=== PATIENT | female | born 1965 | race Caucasian/White ===

== ENCOUNTER → 2016-08-19 | Outpatient (CLI) | payer BC ==
[~2016-08-19] MED LIST: ASPI81TA57 PO; CALCTAB65 PO; MULT-506 PO
[2016-08-19 13:10] LABS: BASO % 0.5 %; BASO ABS # 0.03 K/uL (0-0.2); COMPLETE YES; EOS % 1.4 %; HEMATOCRIT 41.4 % (37-47); LYMPH % 30.8 %; LYMPH ABS # 1.73 K/uL (1.2-3.4); MEAN CELL VOLUME 90.2 fL (80-100); MEAN CORPUSCULAR HEMOGLOBIN 30.5 pg (25-34); MEAN CORPUSCULAR HGB CONC 33.8 g/dl (32-36); MEAN PLATELET VOLUME 11.2 fL (7.4-10.4); MONO % 8.2 %; NEUT % 59.1 %; PLATELET COUNT 241 K/uL (130-400); RED BLOOD COUNT 4.59 M/uL (4.2-5.4); WHITE BLOOD COUNT 5.62 K/uL (4.8-10.8)
[2016-08-19 13:35] LABS: ALT/SGPT 20 U/L (12-78); BLOOD UREA NITROGEN 12 mg/dl (7-18); BUN/CREATININE RATIO 13.5 (10-20); CALCIUM 8.8 mg/dl (8.5-10.1); CARBON DIOXIDE 24 mmol/L (21-32); CHLORIDE 108 mmol/L (98-107); CHOLESTEROL 179 mg/dl (0-200); CREATININE 0.86 mg/dl (0.60-1.20); GLUCOSE 76 mg/dl (70-99); POTASSIUM 4.1 mmol/L (3.5-5.1); SODIUM 139 mmol/L (136-145)
[2016-08-19 13:45] LABS: ALB/GLOB RATIO 1.1 (0.9-2); ALKALINE PHOSPHATASE 49 U/L (45-117); AST/SGOT 13 U/L (15-37); HDL CHOLESTEROL 45 mg/dl; LDL CHOLESTEROL CALCULATED 115 mg/dl; TRIGLYCERIDES 95 mg/dl (0-150); VERY LOW DENSITY LIPOPROT CALC 19 mg/dl
--- NOTE | 2016-08-25 10:17 | CODING QUERY MEDICAL NECESSITY ---
CQSUPPORTING DIAGNOSIS NEEDED A supporting diagnosis is required for the test/procedure performed on this patient in order for us to be reimbursed by the patient's insurance. Please provide a supporting diagnosis for the following test/procedure listed below next to the test name along with your signature. *If there is no additional diagnosis for this patient that would support the following test/procedure please document that below next to the test/procedure. Test(s)/Procedure(s) that require a supporting diagnosis: DOS 08/19/16 VITAMIN D TEST BLOOD COUNT TEST Provider Signature: Date: Thank you Elizabeth Mendoza [facility] Information Management Once completed, please kindly fax back to [phone] For questions please call [phone]
== END | disposition home or self-care (01) ==
LOC: C.LABPVFM 08:07
PROVIDERS: ATTEND Nurse Practitioner
DX: Z00.00 Encounter for general adult medical examination without abnormal findings (principal)

== ENCOUNTER → 2016-10-06 | Outpatient (CLI) | payer BC ==
--- NOTE | 2016-10-09 08:00 | MAMMOGRAPHY REPORT ---
BILATERAL DIGITAL SCREENING MAMMOGRAM TOMOSYNTHESIS WITH CAD: 10/06/2016 CLINICAL HISTORY: Routine screening. TECHNIQUE: Breast tomosynthesis in addition to standard 2D mammography was performed. Current study was also evaluated with a Computer Aided Detection (CAD) system. COMPARISON: Comparison is made to exams dated: 12/02/2012 mammogram and 05/17/2010 mammogram - [facility]. BREAST COMPOSITION: There are scattered areas of fibroglandular density in both breasts. FINDINGS: No suspicious masses, calcifications, or areas of architectural distortion are noted in ei ther breast. There has been no significant interval change compared to prior exams. IMPRESSION: ACR BI-RADS CATEGORY 1: NEGATIVE There is no mammographic evidence of malignancy. A 1 year screening mammogram is recommended. The pa tient will receive written notification of the results. Approximately 10% of breast cancers are not detected with mammography. A negative mammographic report should not delay biopsy if a clinically suggestive mass is present. Shanae Gaston M.D. ah/:10/06/2016 14:46:02 [employer] Supervisor: Ana MCCOLLUM(R)(M), [facility] letter sent: Normal 1/2 BI-RADS Code: ACR BI-RADS Category 1: Negative
== END | disposition home or self-care (01) ==
LOC: C.MAMM 13:58
PROVIDERS: ATTEND Nurse Practitioner
DX: Z12.31 Encounter for screening mammogram for malignant neoplasm of breast (principal)

== ENCOUNTER → 2017-02-09 | Outpatient (CLI) | payer BC | END | disposition home or self-care (01) | LOC: C.PAPS 17:47 | PROVIDERS: ATTEND Obstetrics & Gynecology | DX: Z01.419 Encounter for gynecological examination (general) (routine) without abnormal findings (principal) ==